=== PATIENT | female | born 1990 | race Caucasian/White ===

== ENCOUNTER → 2019-04-29 | Outpatient (REF) | payer OTHER | LOC: M LAB REF 19:27 | PROVIDERS: ATTEND Physician Assistant | DX: S39.012A Strain of muscle, fascia and tendon of lower back, initial encounter (principal); R82.79 Other abnormal findings on microbiological examination of urine; X58.XXXA Exposure to other specified factors, initial encounter; Y92.89 Other specified places as the place of occurrence of the external cause ==

== ENCOUNTER → 2019-05-16 | Outpatient (CLI) | payer OTHER ==
--- NOTE | 2019-05-16 19:05 | REP ---
Clinical: Pain right fifth digit Technique: AP, lateral, bilateral oblique views right fifth digit . Findings: The osseous structures and joint spaces are intact and normal. There is no evidence for acute fracture or dislocation. Surrounding soft tissues are unremarkable. No subcutaneous emphysema or radiodense foreign body. Impression: No acute fracture or dislocation. Electronically Signed by Malik Lopez MD 05/16/2019 06:56 P
== END ==
LOC: M WUC 18:25
PROVIDERS: ATTEND Physician Assistant
DX: M79.644 Pain in right finger(s) (principal)

== ENCOUNTER → 2020-01-07 | Outpatient (REF) | payer OTHER | LOC: M LAB REF 16:45 | PROVIDERS: ATTEND Family Medicine | DX: J02.9 Acute pharyngitis, unspecified (principal) ==

== ENCOUNTER → 2021-01-12 | Outpatient (CLI) | payer OTHER | LOC: M LAB 16:25 | PROVIDERS: ATTEND Physician Assistant | DX: Z34.91 Encounter for supervision of normal pregnancy, unspecified, first trimester (principal); Z3A.01 Less than 8 weeks gestation of pregnancy ==

== ENCOUNTER → 2021-01-15 | Outpatient (CLI) | payer OTHER ==
[~2021-01-15] MED LIST: AMOX400S2; FLON1SPR NARES; MULTTAB20 PO; ZYRTTAB8 PO
== END ==
LOC: M LAB 15:00
PROVIDERS: ATTEND Physician Assistant
DX: Z34.91 Encounter for supervision of normal pregnancy, unspecified, first trimester (principal); Z3A.01 Less than 8 weeks gestation of pregnancy

== ENCOUNTER 2021-01-20 09:52 | Emergency (ER) | payer OTHER ==
[~2021-01-20] VITALS: Ht 157.5 cm; Wt 65.1 kg
[2021-01-20] MEDS ORDERED: MULTTAB20 PO (10:09)
[2021-01-20] MEDS ORDERED: ZYRTTAB8 PO (10:09)
[2021-01-20] MEDS ORDERED: FLON1SPR NARES (10:09)
[2021-01-20] MEDS ORDERED: AMOX400S2 (10:09)
[2021-01-20 11:38] LABS: HEMATOCRIT 42.1 % (36.0-47.0); MEAN CORPUSCULAR HEMOGLOBIN 30.5 pg (27.0-33.0); MEAN CORPUSCULAR HGB CONC 33.3 g/dl (32.0-36.5); MEAN CORPUSCULAR VOLUME 91.7 fl (80.0-96.0); PLATELET COUNT, AUTOMATED 239 10^3/uL (150-450); RED BLOOD COUNT 4.59 10^6/uL (4.00-5.40); WHITE BLOOD COUNT 6.9 10^3/uL (4.0-10.0)
--- NOTE | 2021-01-20 12:09 | REP ---
INDICATION: 5 weeks, vag bleeding COMPARISON: None. TECHNIQUE: Transabdominal and transvaginal 1st trimester obstetrical ultrasound with color Doppler evaluation. FINDINGS: Heterogeneous anteverted uterus is appreciated with irregular shaped gestational sac and minimal surrounding decidual reaction. Small yolk sac noted without pole. Mean sac diameter of 5.3 mm corresponds to 5 weeks 0 days gestational age. Maternal ovaries include 2.7 x 2.1 x 3.1 cm complex right ovarian cyst likely corpus luteum. Small amount of free fluid in the pelvis is nonspecific. IMPRESSION: Findings as described above. Differential diagnosis includes spontaneous , early , and ectopic which cannot definitively be excluded. Correlation with serial HCG levels recommended. <Electronically signed by Malik Lopez > 01/20/21 [id number]
[2021-01-20 12:37] LABS: BLOOD UREA NITROGEN 13 MG/DL (7-18); CALCIUM LEVEL 9.4 MG/DL (8.5-10.1); CARBON DIOXIDE LEVEL 25 MEQ/L (21-32); CHLORIDE LEVEL 105 MEQ/L (98-107); CREATININE FOR GFR 0.68 MG/DL (0.55-1.30); GLOMERULAR FILTRATION RATE > 60.0 (>60); GLUCOSE, FASTING 89 MG/DL (70-100); HCG, SERUM QUANTITATIVE 6065 MIU/ML; POTASSIUM SERUM 3.7 MEQ/L (3.5-5.1); SODIUM LEVEL 138 MEQ/L (136-145)
[2021-01-20 13:36] VITALS: BP 119/71
== END 2021-01-20 13:38 | disposition home or self-care (01) ==
LOC: M ED 09:52
DX: O20.0 Threatened abortion (principal); O26.891 Other specified pregnancy related conditions, first trimester; O20.8 Other hemorrhage in early pregnancy; O34.81 Maternal care for other abnormalities of pelvic organs, first trimester; Z87.59 Personal history of other complications of pregnancy, childbirth and the puerperium; Z3A.01 Less than 8 weeks gestation of pregnancy

== ENCOUNTER → 2021-01-22 | Outpatient (CLI) | payer OTHER | LOC: M LAB 14:55 | PROVIDERS: ATTEND Physician Assistant | DX: N93.9 Abnormal uterine and vaginal bleeding, unspecified (principal) ==

== ENCOUNTER → 2021-01-26 | Outpatient (CLI) | payer OTHER ==
--- NOTE | 2021-01-26 13:05 | REP ---
INDICATION: O20.0 THREATENED . COMPARISON: None. TECHNIQUE: Real-time sonographic evaluation of pelvis performed utilizing transabdominal and endovaginal technique. FINDINGS: Intrauterine gestational sac contains a yolk sac and a pole. The crown-rump length is 2 mm corresponding to an estimated station age of 5 weeks 6 days. The estimated gestational age based on LMP is 6 weeks 2 days, EDC 09/19/2021. heart rate is 88 beats per minute. There is no subchorionic hemorrhage. Complex corpus luteal cyst is seen in the right ovary 3.4 x 2.7 x 2.8 cm. Left ovary is unremarkable. IMPRESSION: Single living intrauterine gestation. The estimated gestational age is 5 weeks 6 days based on crown-rump length measurement 2 mm. Estimated gestational age based on LMP is 6 weeks 2 days, EDC 09/19/2021. <Electronically signed by Shane Farris > 01/26/21 [id number]
== END ==
LOC: M WHC 11:35
PROVIDERS: ATTEND Obstetrics & Gynecology
DX: O20.0 Threatened abortion (principal); Z3A.01 Less than 8 weeks gestation of pregnancy
CPT/HCPCS: 76801; 76817; G0463

== ENCOUNTER → 2021-01-27 | Outpatient (REF) | payer OTHER | LOC: M LAB REF 17:23 | PROVIDERS: ATTEND Physician Assistant | DX: R31.9 Hematuria, unspecified (principal) ==

== ENCOUNTER → 2021-02-15 | Outpatient (REF) | payer OTHER ==
[2021-02-15 12:17] LABS: HEMATOCRIT 37.5 % (36.0-47.0); HEMOGLOBIN 12.7 g/dl (12.0-15.5); MEAN CORPUSCULAR HEMOGLOBIN 30.7 pg (27.0-33.0); MEAN CORPUSCULAR HGB CONC 33.9 g/dl (32.0-36.5); MEAN CORPUSCULAR VOLUME 90.6 fl (80.0-96.0); PLATELET COUNT, AUTOMATED 239 10^3/uL (150-450); RED BLOOD COUNT 4.14 10^6/uL (4.00-5.40); WHITE BLOOD COUNT 6.5 10^3/uL (4.0-10.0)
[2021-02-15 13:30] LABS: HEPATITIS C VIRUS ABY INDEX < 0.0 INDEX (<0.8); HIV 1&2 SCREEN CENTAUR NEGATIVE (NEGATIVE)
[2021-02-15 14:28] LABS: CHLAMYDIA DNA AMPLIFICATION NEGATIVE (NEGATIVE); GC DNA AMPLIFICATION NEGATIVE (NEGATIVE)
== END ==
LOC: M PLALAB 10:14
PROVIDERS: ATTEND Obstetrics & Gynecology
DX: Z36.89 Encounter for other specified antenatal screening (principal); Z34.91 Encounter for supervision of normal pregnancy, unspecified, first trimester

== ENCOUNTER → 2021-03-01 | Outpatient (REF) | payer OTHER | LOC: M SFHCWAGY 13:56 | PROVIDERS: ATTEND Advanced Practice Midwife | DX: Z34.81 Encounter for supervision of other normal pregnancy, first trimester (principal) ==

== ENCOUNTER 2021-03-10 10:09 | Emergency (ER) | payer OTHER ==
[~2021-03-10] VITALS: Ht 157.5 cm; Wt 65.1 kg
[2021-03-10] MEDS ORDERED: CETI5SOL3 PO (10:27)
[2021-03-10 11:47] LABS: BASO % 0.4 % (0.0-1.0); EOS % 0.1 % (0.0-3.0); HEMATOCRIT 39.1 % (36.0-47.0); HEMOGLOBIN 13.4 g/dl (12.0-15.5); LYMPH # 1.3 10^3/uL (1.5-5.0); LYMPH % 17.8 % (24.0-44.0); MEAN CORPUSCULAR HEMOGLOBIN 31.1 pg (27.0-33.0); MEAN CORPUSCULAR HGB CONC 34.3 g/dl (32.0-36.5); MEAN CORPUSCULAR VOLUME 90.7 fl (80.0-96.0); MONO # 0.5 10^3/uL (0.0-0.8); MONO % 6.6 % (2.0-8.0); NEUTROPHILS # 5.6 10^3/uL (1.5-8.5); NEUTROPHILS % 74.8 % (36.0-66.0); PLATELET COUNT, AUTOMATED 249 10^3/uL (150-450); RED BLOOD COUNT 4.31 10^6/uL (4.00-5.40); WHITE BLOOD COUNT 7.4 10^3/uL (4.0-10.0)
--- NOTE | 2021-03-10 12:49 | REP ---
INDICATION: pelvic pain; bleeding. COMPARISON: 01/26/2021 TECHNIQUE: Transabdominal scanning FINDINGS: Once again, seen within the uterus there is a single living intrauterine gestation the mean crown-rump length measurement of which is consistent with a 11 week 6 day gestational age. The developing placenta is anterior and not low lying. The technologist performing the examination did not measure the ovaries. The right adnexa there is a 2.4 x 2.7 x 2.7 cm sized anechoic structure likely representing simple ovarian cyst. This exhibits posterior wall enhancement and increased through transmission. A resistive index was not obtained on this. Adjacent to the developing chorion there is a mixed echo structure which measures 3.9 x 1.8 x 2.7 cm. IMPRESSION: 1. Possible subchorionic/retroplacental hemorrhage is suspected as described above. Close follow-up is recommended. 2. Simple right ovarian cyst possibly reflecting a corpus luteum cyst. 3. Other findings as described above. <Electronically signed by Jamil Bennett > 03/10/21 [id number]
[2021-03-10 13:50] VITALS: BP 110/61
[2021-03-10 14:23] LABS: CHLAMYDIA DNA AMPLIFICATION NEGATIVE (NEGATIVE); GC DNA AMPLIFICATION NEGATIVE (NEGATIVE)
== END 2021-03-10 14:00 | disposition home or self-care (01) ==
LOC: M ED 10:09
DX: O20.8 Other hemorrhage in early pregnancy (principal); O34.81 Maternal care for other abnormalities of pelvic organs, first trimester; Z3A.11 11 weeks gestation of pregnancy; Z79.899 Other long term (current) drug therapy; Z88.0 Allergy status to penicillin

== ENCOUNTER → 2021-03-19 | Outpatient (CLI) | payer OTHER ==
[~2021-03-19] MED LIST changes: +CETI5SOL3 PO
== END ==
LOC: M PLALAB 15:48
PROVIDERS: ATTEND Advanced Practice Midwife
DX: Z34.81 Encounter for supervision of other normal pregnancy, first trimester (principal)

== ENCOUNTER → 2021-04-23 | Outpatient (CLI) | payer OTHER ==
--- NOTE | 2021-04-23 16:23 | REP ---
INDICATION: ANATOMY. COMPARISON: None TECHNIQUE: Transabdominal imaging FINDINGS: Multiple ultrasonographic images of the gravid uterus shows a single living intrauterine gestation in the breech presentation. Doppler interrogation of the heart is a heart rate of 142 beats per minute. The subjective amniotic fluid volume is within normal limits. The placenta is fundal and not low-lying. The cervix measures 3.6 cm in length and is closed. BPD: 4.1 cm 18 weeks 3 days HC: 15.2 cm 18 weeks 1 day AC: 13.0 cm 18 weeks 4 days FL: 2.4 cm 18 weeks 2 days The estimated weight is 239 g which is at the 63rd percentile for an 18 week 1 day gestational age. The anatomical structures seen to be within normal limits are as follows: Cerebellum, cisterna magna, urinary bladder, upper lip, right left ventricular outflow tracts, and upper lower extremities. Structures not well seen today are as follows: Thalami, cavum septum pellucidum, cerebral ventricles, spine, kidneys, three-vessel umbilical cord, stomach, and four-chamber heart. IMPRESSION: Single living intrauterine gestation as described above with an estimated gestational age of 18 weeks 3 days via composite criteria and an estimated date of delivery of 09/21/2021 by today's exam. No anomalies were detected, however, I recommend a follow-up examination to better image those structures not well seen today as described above. <Electronically signed by Jamil Bennett > 04/23/21 [id number]
== END ==
LOC: M WHC 14:28
PROVIDERS: ATTEND Advanced Practice Midwife
DX: Z36.89 Encounter for other specified antenatal screening (principal); Z3A.18 18 weeks gestation of pregnancy; O32.1XX0 Maternal care for breech presentation, not applicable or unspecified

== ENCOUNTER → 2021-06-07 | Outpatient (CLI) | payer OTHER ==
--- NOTE | 2021-06-07 09:22 | REP ---
INDICATION: F/U ANATOMY. COMPARISON: 04/23/2021. TECHNIQUE: Real-time sonographic evaluation of the gravid uterus performed. FINDINGS: Estimated gestational age is24 weeks 4 days, EDC 09/23/2021. Today's measurements indicate appropriate growth. Presentation: Cephalic Placenta anterior, grade 1, without evidence of placenta previa. heart rate is recorded at 140 beats per minute. Amniotic fluid is subjectively normal. Closed cervical length is measured at 4.1 cm. Biometry chart: BPD: 62 mm, 25 weeks 0 days, both 59th percentile. HC: 225 mm, 24 weeks 4 days, 50th percentile AC: 200 mm, 24 weeks 5 days, 52nd percentile Femur length: 45 mm, 24 weeks 5 days, 53rd percentile HC to AC ratio: 1.13, normal range 1.02-1.21. Estimated weight: 723g, 45th percentile. anatomy: The thalami, lateral ventricles, spine, four-chamber heart, bilateral kidneys, three-vessel cord and stomach are visualized on today's exam and are grossly unremarkable. IMPRESSION: Viable single intrauterine gestation as above. <Electronically signed by Shane Farris > 06/07/21 [id number]
== END ==
LOC: M WHC 07:27
PROVIDERS: ATTEND Advanced Practice Midwife
DX: Z36.89 Encounter for other specified antenatal screening (principal); Z3A.24 24 weeks gestation of pregnancy

== ENCOUNTER → 2021-06-21 | Outpatient (CLI) | payer OTHER ==
[2021-06-21 14:36] LABS: HEMATOCRIT 34.9 % (36.0-47.0); HEMOGLOBIN 11.6 g/dl (12.0-15.5); MEAN CORPUSCULAR HEMOGLOBIN 31.9 pg (27.0-33.0); MEAN CORPUSCULAR HGB CONC 33.2 g/dl (32.0-36.5); MEAN CORPUSCULAR VOLUME 95.9 fl (80.0-96.0); PLATELET COUNT, AUTOMATED 224 10^3/uL (150-450); RED BLOOD COUNT 3.64 10^6/uL (4.00-5.40); WHITE BLOOD COUNT 10.1 10^3/uL (4.0-10.0)
== END ==
LOC: M PLALAB 08:38
PROVIDERS: ATTEND Advanced Practice Midwife
DX: Z34.82 Encounter for supervision of other normal pregnancy, second trimester (principal); Z36.89 Encounter for other specified antenatal screening

== ENCOUNTER → 2021-09-01 | Outpatient (REF) | payer OTHER | LOC: M SFHCWAGY 15:03 | PROVIDERS: ATTEND Specialist | DX: Z34.83 Encounter for supervision of other normal pregnancy, third trimester (principal); Z36.85 Encounter for antenatal screening for Streptococcus B; Z3A.36 36 weeks gestation of pregnancy | CPT/HCPCS: 87081; 87186; G0463 ==